=== PATIENT | male | born 1980 | race Caucasian/White ===

== ENCOUNTER 2019-03-09 09:15 | Emergency (ER) | payer SELFPAY ==
[2019-03-09] MEDS ORDERED: Albuterol/Ipratropium 3.0-0.5 MG/3 ML Neb Soln NEB ONE (09:33)
[2019-03-09] MEDS ORDERED: methylPREDNISolone Sodium Succinate 125 MG/2 ML SDV IM ONE (09:36)
--- NOTE | 2019-03-09 09:58 | EDM.PDOC ---
ED HPI GENERAL MEDICAL PROBLEM - General Chief Complaint: Respiratory Problem Stated Complaint: RESP INFECTION, SHORTNESS OF BREATH, COUGH Time Seen by Provider: 03/09/19 09:36 Source of Information: Reports: Patient History Limitations: Reports: No Limitations - History of Present Illness INITIAL COMMENTS - FREE TEXT/NARRATIVE: HISTORY AND PHYSICAL: History of present illness: Patient is a 38-year-old male presents to the ED with complaint of cough and not feeling well 6 days. She reports a history of asthma as a child, has been wheezy but denies shortness of breath or chest pain. He has had subjective fever but denies nausea, vomiting, abdominal pain, diarrhea. Patient reports smoking history 1 pack-a-day x15 years. Review of systems: As per history of present illness and below otherwise all systems reviewed and negative. Past medical history: As per history of present illness and as reviewed below otherwise noncontributory. Surgical history: As per history of present illness and as reviewed below otherwise noncontributory. Social history: No reported history of drug or alcohol abuse. Family history: As per history of present illness and as reviewed below otherwise noncontributory. Physical exam: General: Patient sitting comfortably in no acute distress and nontoxic appearing HEENT: Atraumatic, normocephalic, pupils reactive, negative for conjunctival pallor or scleral icterus, mucous membranes moist, throat clear, neck supple, nontender, trachea midline. No meningeal signs. Lungs: Breath sounds are diminished with wheezing noted throughout, chest nontender. Heart: S1S2, regular, negative for clicks, rubs, or overt murmur. Abdomen: Soft, nondistended, nontender. Negative for masses or hepatosplenomegaly. Negative for costovertebral tenderness. No rigidity, rebound , guarding. Pelvis: Stable nontender. Genitourinary: Deferred. Rectal: Deferred. Extremities: Atraumatic, negative for cords or calf pain. Neurovascular unremarkable. Neuro: Awake, alert, oriented. Cranial nerves II through XII unremarkable. Cerebellum unremarkable. Motor and sensory unremarkable throughout. Exam nonfocal. Notes: Diagnostics: CBC, CMP, chest x-ray Therapeutics: Solu-Medrol 125IM DuoNeb Prescriptions: Azithromycin Ventolin inhaler Medrol Dosepak Impression: Lower respiratory tract infection Plan: Take medication as instructed Follow-up with primary care provider Return to ED as needed as discussed Definitive disposition and diagnosis as appropriate pending reevaluation and review of above. generalized body aches Pain Score (Numeric/FACES): 5 - Related Data Allergies Allergy/AdvReac Type Severity Reaction Status Date / Time No Known Allergies Allergy Verified 07/23/15 23:06 Home Meds: Home Meds . [No Known Home Meds] 07/23/15 [History] Past Medical History - Past Health History Medical/Surgical History: Denies Medical/Surgical History Respiratory History: Reports: None Gastrointestinal History: Reports: None Genitourinary History: Reports: None Musculoskeletal History: Reports: None Neurological History: Reports: None Psychiatric History: Reports: Addiction Other Psychiatric History: PT does not want to be prescribed or given any narcotics due to addiction Hx. Endocrine/Metabolic History: Reports: None Dermatologic History: Reports: None - Infectious Disease History Infectious Disease History: Reports: None - Past Surgical History Cardiovascular Surgical History: Reports: None GI Surgical History: Reports: None Male Surgical History: Reports: None Social & Family History - Family History Family Medical History: Noncontributory - Tobacco Use Smoking Status *Q: Former Smoker Used Tobacco, but Quit: Yes Month/Year Tobacco Last Used: 02/2019 - Recreational Drug Use Recreational Drug Use: Yes ED ROS GENERAL - Review of Systems Review Of Systems: ROS reveals no pertinent complaints other than HPI. ED EXAM, GENERAL - Physical Exam Exam: See Below (See dictation) Course - Vital Signs Last Recorded V/S: Last Vital Signs Temp 96.6 F 03/09/19 09:20 Pulse 84 03/09/19 09:20 Resp 22 H 03/09/19 09:20 BP 135/81 03/09/19 09:20 Pulse Ox 96 03/09/19 09:20 - Orders/Labs/Meds Orders: Active Orders 24 hr Category Date Time Status RT Aerosol Therapy [RC] ASDIRECTED Care 03/09/19 09:33 Active Labs: Laboratory Tests 03/09/19 03/09/19 Range/Units 09:43 09:43 WBC 14.07 H (4.0-11.0) K/uL RBC 4.72 (4.50-5.90) M/uL Hgb 14.6 (13.0-17.0) g/dL Hct 41.5 (38.0-50.0) % MCV 87.9 (80.0-98.0) fL MCH 30.9 (27.0-32.0) pg MCHC 35.2 (31.0-37.0) g/dL RDW Std Deviation 40.6 (28.0-62.0) fl RDW Coeff of Mitchell 13 (11.0-15.0) % Plt Count 180 (150-400) K/uL MPV 8.90 (7.40-12.00) fL Neut % (Auto) 70.5 (48.0-80.0) % Lymph % (Auto) 17.6 (16.0-40.0) % Kemper % (Auto) 11.2 (0.0-15.0) % Eos % (Auto) 0.6 (0.0-7.0) % Baso % (Auto) 0.1 (0.0-1.5) % Neut # (Auto) 9.9 H (1.4-5.7) K/uL Lymph # (Auto) 2.5 H (0.6-2.4) K/uL Kemper # (Auto) 1.6 H (0.0-0.8) K/uL Eos # (Auto) 0.1 (0.0-0.7) K/uL Baso # (Auto) 0.0 (0.0-0.1) K/uL Nucleated RBC % 0.0 /100WBC Nucleated RBCs # 0 K/uL Sodium 140 (136-148) mmol/L Potassium 4.1 (3.5-5.1) mmol/L Chloride 104 (98-107) mmol/L Carbon Dioxide 24.9 (21.0-32.0) mmol/L BUN 17 (7.0-18.0) mg/dL Creatinine 1.1 (0.8-1.3) mg/dL Est Cr Clr Drug Dosing 110.96 mL/min Estimated GFR (MDRD) > 60.0 ml/min Glucose 103 (74-106) mg/dL Calcium 9.1 (8.5-10.1) mg/dL Total Bilirubin 0.5 (0.2-1.0) mg/dL AST 22 (15-37) IU/L ALT 28 (14-63) IU/L Alkaline Phosphatase 61 (46-116) U/L Total Protein 6.9 (6.4-8.2) g/dL Albumin 3.2 L (3.4-5.0) g/dL Globulin 3.7 (2.6-4.0) g/dL Albumin/Globulin Ratio 0.9 (0.9-1.6) Meds: Medications Discontinued Medications Generic Name Dose Route Start Last Admin Trade Name Tom PRN Reason Stop Dose Admin Albuterol/Ipratropium 3 ml 03/09/19 09:33 03/09/19 09:36 Duoneb 3.0-0.5 Mg/3 Ml NEB 03/09/19 09:34 3 ml ONETIME ONE Administration Methylprednisolone Sodium Succinate 125 mg 03/09/19 09:36 03/09/19 10:17 Solu-Medrol IM 03/09/19 09:37 125 mg ONETIME ONE Administration Departure - Departure Time of Disposition: 10:25 Disposition: Home, Self-Care 01 Condition: Good Clinical Impression: Lower respiratory infection - Discharge Information Referrals: PCP,Unknown [Primary Care Provider] - Forms: ED Department Discharge Additional Instructions: The following information is given to patients seen in the emergency department who are being discharged to home. This information is to outline your options for follow-up care. We provide all patients seen in our emergency department with a follow-up referral. The need for follow-up, as well as the timing and circumstances, are variable depending upon the specifics of your emergency department visit. If you don't have a primary care physician on staff, we will provide you with a referral. We always advise you to contact your personal physician following an emergency department visit to inform them of the circumstance of the visit and for follow-up with them and/or the need for any referrals to a consulting specialist. The emergency department will also refer you to a specialist when appropriate. This referral assures that you have the opportunity for follow-up care with a specialist. All of these measure are taken in an effort to provide you with optimal care, which includes your follow-up. Under all circumstances we always encourage you to contact your private physician who remains a resource for coordinating your care. When calling for follow-up care, please make the office aware that this follow-up is from your recent emergency room visit. If for any reason you are refused follow-up, please contact the [facility] Emergency Department at and asked to speak to the emergency department charge nurse. [facility] [address] [place] [address] [facility] [address] [place] [id number] Take medication as instructed Follow-up with primary care provider Return to ED as needed as discussed - My Orders Last 24 Hours: My Active Orders 03/09/19 09:33 RT Aerosol Therapy [RC] ASDIRECTED - Assessment/Plan Last 24 Hours: My Active Orders 03/09/19 09:33 RT Aerosol Therapy [RC] ASDIRECTED
[2019-03-09 10:10] LABS: BLOOD UREA NITROGEN,BUN 17 mg/dL (7.0-18.0); CARBON DIOXIDE,CO2 24.9 mmol/L (21.0-32.0); CHLORIDE,CL 104 mmol/L (98-107); GLUCOSE RANDOM 103 mg/dL (74-106); POTASSIUM,K 4.1 mmol/L (3.5-5.1); SODIUM,NA 140 mmol/L (136-148)
--- NOTE | 2019-03-09 10:15 | CR ---
INDICATION: Shortness of breath. COMPARISON: None. TECHNIQUE: Two view chest. FINDINGS: Subtle left basilar infiltrate. Clear right lung. Normal heart size. No pleural effusion identified. IMPRESSION: Faint opacity left lung base posteriorly. Comparison or radiographic follow up suggested. Dictated by Tod Milan MD @ Mar 09 2019 10:12AM Signed by Dr. Tod Milan @ Mar 09 2019 10:13AM
[2019-03-09 10:58] VITALS: BP 115/59
== END 2019-03-09 10:58 | disposition home or self-care (01) ==
LOC: MW.ED 09:15
DX: J22 Unspecified acute lower respiratory infection (principal); Z87.891 Personal history of nicotine dependence
CPT/HCPCS: 36415; 71046; 80053; 85025; 94640; 96372; 99284; J2930; J7620-GY

== ENCOUNTER 2019-09-01 00:31 | Emergency (ER) | payer SELFPAY ==
[2019-09-01] MEDS ORDERED: Ketorolac 30 MG/ML SDV IM ONE (00:45)
--- NOTE | 2019-09-01 00:51 | EDM.PDOC ---
ED [facility] GENERAL MEDICAL PROBLEM - General Chief Complaint: General Stated Complaint: SINUS INFECTION Time Seen by Provider: 09/01/19 00:50 Source of Information: Reports: Patient History Limitations: Reports: No Limitations - History of Present Illness INITIAL COMMENTS - FREE TEXT/NARRATIVE: Patient is a 38-year-old male presenting with chief complaint of ear discharge and cough. Patient states that his been sick for the past 1 week. Patient reports symptoms of intermittent fevers, cough, congestion. Patient states his ear discharge started yesterday. Patient reports some pain and discomfort in the ear. Patient denies any trauma. Patient denies any headaches. Patient has taken some ibuprofen with little relief. Patient denies any difficulty breathing or shortness of breath. Patient reports history of chronic bronchitis as a child. Pmhx: None Pshx: None Family Hx: noncontributory Smoking history? no Etoh use? none Drug use? Prior heroin use In addition to that documented in the HPI above, the additional ROS was obtained : Constitutional: Per HPI Eyes: Denies vision changes ENMT: Denies sore throat CV: Denies chest pain Resp: Denies SOB GI: Denies vomiting or diarrhea : Denies painful urination MSK: Denies recent trauma Skin: Denies new rashes Neuro: Denies new numbness or tingling or weakness Endocrine: Denies unexpected weight loss Heme: Denies bleeding disorders I have reviewed the triage vital signs Const: Well nourished, well developed, appears stated age Eyes: PERRL, no conjunctival injection HENT: Right ear demonstrates discharge with erythema of the external canal. No mastoid tenderness or erythema. NCAT, Neck supple without meningismus CV: RRR, Warm, well-perfused extremities RESP: Diffuse bilateral wheezes, Unlabored respiratory effort. Speaking full sentences without distress. GI: soft, non-tender, non-distended, no masses MSK: No gross deformities appreciated Skin: Warm, dry. No rashes Neuro: Alert, development associate II-XII grossly intact. Sensation and motor function of extremities grossly intact. Psych: Appropriate mood and affect Assessment and plan: Patient 38-year-old male presenting with ear discharge consistent with likely otitis externa. Patient has no signs or symptoms of mastoiditis. Patient will be discharged with otic suspension drops for 7 days. Patient's wheezing is likely due to concurrent bronchitis. Patient is not any respiratory distress and is saturating well on room air. Patient will be given supportive care instructions and return precautions. All questions addressed and answered. Patient agrees with plan. Head Pain Score (Numeric/FACES): 6 - Related Data Allergies Allergy/AdvReac Type Severity Reaction Status Date / Time No Known Allergies Allergy Verified 09/01/19 00:35 Home Meds: Home Meds Benzonatate [Tessalon Perle] 100 mg PO TID #30 capsule 09/01/19 [Rx] Past Medical History - Past Health History Medical/Surgical History: Denies Medical/Surgical History Respiratory History: Reports: None Gastrointestinal History: Reports: None Genitourinary History: Reports: None Musculoskeletal History: Reports: None Neurological History: Reports: None Psychiatric History: Reports: Addiction Other Psychiatric History: PT does not want to be prescribed or given any narcotics due to addiction Hx. Endocrine/Metabolic History: Reports: None Dermatologic History: Reports: None - Infectious Disease History Infectious Disease History: Reports: Chicken Pox, MRSA - Past Surgical History Cardiovascular Surgical History: Reports: None GI Surgical History: Reports: None Male Surgical History: Reports: None Social & Family History - Family History Family Medical History: Noncontributory - Tobacco Use Smoking Status *Q: Current Every Day Smoker Years of Tobacco use: 22 Packs/Tins Daily: 1 - Caffeine Use Caffeine Use: Reports: Coffee, Energy Drinks - Recreational Drug Use Recreational Drug Use: No ED ROS GENERAL - Review of Systems Review Of Systems: See Below ED EXAM, GENERAL - Physical Exam Exam: See Below Course - Vital Signs Last Recorded V/S: Last Vital Signs Temp 36.7 C 09/01/19 00:36 Pulse 72 09/01/19 00:36 Resp 20 09/01/19 00:36 BP 132/82 09/01/19 00:36 Pulse Ox 95 09/01/19 00:36 - Orders/Labs/Meds Meds: Medications Discontinued Medications Generic Name Dose Route Start Last Admin Trade Name Freq PRN Reason Stop Dose Admin Ketorolac Tromethamine 30 mg 09/01/19 00:45 Toradol IM 09/01/19 00:46 ONETIME ONE Departure - Departure Time of Disposition: 00:50 Disposition: Home, Self-Care 01 Clinical Impression: Otitis externa - Discharge Information Prescriptions: Benzonatate [Tessalon Perle] 100 mg PO TID #30 capsule Instructions: Otitis Externa, [id number] Referrals: PCP,None [Primary Care Provider] - Forms: ED Department Discharge Additional Instructions: The following information is given to patients seen in the emergency department who are being discharged to home. This information is to outline your options for follow-up care. We provide all patients seen in our emergency department with a follow-up referral. The need for follow-up, as well as the timing and circumstances, are variable depending upon the specifics of your emergency department visit. If you don't have a primary care physician on staff, we will provide you with a referral. We always advise you to contact your personal physician following an emergency department visit to inform them of the circumstance of the visit and for follow-up with them and/or the need for any referrals to a consulting specialist. The emergency department will also refer you to a specialist when appropriate. This referral assures that you have the opportunity for follow-up care with a specialist. All of these measure are taken in an effort to provide you with optimal care, which includes your follow-up. Under all circumstances we always encourage you to contact your private physician who remains a resource for coordinating your care. When calling for follow-up care, please make the office aware that this follow-up is from your recent emergency room visit. If for any reason you are refused follow-up, please contact the [facility] Emergency Department at and asked to speak to the emergency department charge nurse. Sepsis Event Note - Evaluation Sepsis Screening Result: No Definite Risk - Focused Exam Vital Signs: Vital Signs Temp Pulse Resp BP Pulse Ox 09/01/19 00:36 36.7 C 72 20 132/82 95 Date Exam was Performed: 09/01/19 Time Exam was Performed: 00:52
[2019-09-01 01:00] VITALS: BP 120/77; PULSE 74
[2019-09-01] MEDS ORDERED: Hydrocortisone/Neomycin/Polymyxin B Otic Susp 10 ML Bottle EARBOTH ONE (01:02)
== END 2019-09-01 01:12 | disposition home or self-care (01) ==
LOC: MW.ED 00:31
DX: H60.91 Unspecified otitis externa, right ear (principal); F17.210 Nicotine dependence, cigarettes, uncomplicated
CPT/HCPCS: 96372; 99283; A9270; J1885

== ENCOUNTER 2021-06-07 01:25 | Emergency (ER) | payer SELFPAY ==
--- NOTE | 2021-06-07 01:26 | EDM.PDOC ---
ED HPI GENERAL MEDICAL PROBLEM - General Stated Complaint: ALTERED STATE AFTER EATING EDIBLE Time Seen by Provider: 06/07/21 01:30 - History of Present Illness INITIAL COMMENTS - FREE TEXT/NARRATIVE: History of present illness: [] Patient has sudden jerky tremor. He has anxiety. He feels tightness in the throat. The patient occasionally smokes marijuana. He has not used methamphetamine or narcotics for several years. He did eat an edible which is friend said was strong. Since then he has anxiety and sudden jerking myoclonus. Review of systems: As per history of present illness and below otherwise all systems reviewed and negative. Past medical history: As per history of present illness and as reviewed below otherwise noncontributory. Surgical history: As per history of present illness and as reviewed below otherwise noncontributory. Social history: No reported history of drug or alcohol abuse. Family history: As per history of present illness and as reviewed below otherwise noncontributory. Physical exam: Constitutional - well developed, well-nourished and in no acute distress HEENT - normocephalic, no evidence of trauma - external nose and mouth normal - no mass in neck and no JVD - mucosae moist EYES - full EOM, PERRL, no icterus - no evidence of inflammation, injection, or drainage Respiratory - no respiratory distress, equal bilateral expansion, lungs clear to auscultation and no abnormal lung sounds Cardiovascular - Regular Rhythm with S1 and S2 appreciated and no murmur, gallop or rub. GI - abdomen soft without distension or organomegaly - normal bowel sounds - no guard or rebound Musculoskeletal no gross deformity of long bones or joints - no tenderness, swelling or edema Neurologic -intermittent myoclonic jerks. Alert and oriented times four - CN II-XII grossly intact - motor sensory and coordination symmetrically normal Psychiatric -anxious mood and normal affect with normal thought content Hematologic - No petechiae or purpura - mucosa appropriate color and sclera not pale - normal nail bed color and refill Integument - no rash or evidence of trauma - normal turgor Diagnostics: [] Therapeutics: [] Impression: [] Plan: [] Definitive disposition and diagnosis as appropriate pending reevaluation and review of above. general Pain Score (Numeric/FACES): 0 - Related Data Allergies Allergy/AdvReac Type Severity Reaction Status Date / Time No Known Allergies Allergy Verified 06/07/21 01:35 Past Medical History - Past Health History Medical/Surgical History: Denies Medical/Surgical History Respiratory History: Reports: None Gastrointestinal History: Reports: None Genitourinary History: Reports: None Musculoskeletal History: Reports: None Neurological History: Reports: None Psychiatric History: Reports: Addiction Other Psychiatric History: PT does not want to be prescribed or given any narcotics due to addiction Hx. Endocrine/Metabolic History: Reports: None Dermatologic History: Reports: None - Infectious Disease History Infectious Disease History: Reports: Chicken Pox, MRSA - Past Surgical History Cardiovascular Surgical History: Reports: None GI Surgical History: Reports: None Male Surgical History: Reports: None Social & Family History - Family History Family Medical History: No Pertinent Family History - Caffeine Use Caffeine Use: Reports: Coffee, Energy Drinks ED ROS GENERAL - Review of Systems Review Of Systems: Comprehensive ROS is negative, except as noted in HPI. ED EXAM, GENERAL - Physical Exam Exam: See Below Free Text/Narrative:: My physical exam is in the HPI Course - Vital Signs Last Recorded V/S: Last Vital Signs Temp 36.3 C 06/07/21 01:36 Pulse 105 H 06/07/21 02:31 Resp 20 06/07/21 02:31 BP 126/83 06/07/21 02:31 Pulse Ox 95 06/07/21 02:31 - Orders/Labs/Meds Orders: Active Orders 24 hr Category Date Time Status DRUG SCREEN, URINE [URCHEM] Stat Lab 06/07/21 01:28 Ordered Sodium Chloride 0.9% [Saline Flush] Med 06/07/21 02:27 Active 10 ml FLUSH ASDIRECTED PRN Sodium Chloride 0.9% [Saline Flush] Med 06/07/21 02:27 Active 2.5 ml FLUSH ASDIRECTED PRN Saline Lock Insert [OM.PC] Stat Oth 06/07/21 02:28 Ordered Medication Orders Sodium Chloride (Sodium Chloride 0.9% 10 Ml Syringe) 10 ml FLUSH ASDIRECTED PRN PRN Reason: Keep Vein Open Last Admin: 06/07/21 02:38 Dose: 10 ml Documented by: STEPHON Sodium Chloride (Sodium Chloride 0.9% 2.5 Ml Syringe) 2.5 ml FLUSH ASDIRECTED PRN PRN Reason: Keep Vein Open Last Admin: 06/07/21 02:37 Dose: 2.5 ml Documented by: STEPHON Labs: Laboratory Tests 06/07/21 06/07/21 Range/Units 02:35 02:35 WBC 8.76 (4.0-11.0) K/uL RBC 4.87 (4.50-5.90) M/uL Hgb 15.0 (13.0-17.0) g/dL Hct 42.2 (38.0-50.0) % MCV 86.7 (80.0-98.0) fL MCH 30.8 (27.0-32.0) pg MCHC 35.5 (31.0-37.0) g/dL RDW Std Deviation 39.3 (28.0-62.0) fl RDW Coeff of Mitchell 12 (11.0-15.0) % Plt Count 210 (150-400) K/uL MPV 9.40 (7.40-12.00) fL Neut % (Auto) 79.0 (48.0-80.0) % Lymph % (Auto) 13.4 L (16.0-40.0) % Evangeline % (Auto) 7.2 (0.0-15.0) % Eos % (Auto) 0.3 (0.0-7.0) % Baso % (Auto) 0.1 (0.0-1.5) % Neut # (Auto) 6.9 H (1.4-5.7) K/uL Lymph # (Auto) 1.2 (0.6-2.4) K/uL Evangeline # (Auto) 0.6 (0.0-0.8) K/uL Eos # (Auto) 0.0 (0.0-0.7) K/uL Baso # (Auto) 0.0 (0.0-0.1) K/uL Nucleated RBC % 0.0 /100WBC Nucleated RBCs # 0 K/uL Sodium 138 (136-148) mmol/L Potassium 4.1 (3.5-5.1) mmol/L Chloride 104 (98-107) mmol/L Carbon Dioxide 24.4 (21.0-32.0) mmol/L BUN 19 H (7.0-18.0) mg/dL Creatinine 1.4 H (0.8-1.3) mg/dL Est Cr Clr Drug Dosing 85.51 mL/min Estimated GFR (MDRD) 56.7 ml/min Glucose 138 H (74-106) mg/dL Calcium 8.7 (8.5-10.1) mg/dL Total Bilirubin 0.4 (0.2-1.0) mg/dL AST 21 (15-37) IU/L ALT 27 (14-63) IU/L Alkaline Phosphatase 74 (46-116) U/L Creatine Kinase 241 (26-308) U/L Total Protein 7.4 (6.4-8.2) g/dL Albumin 3.8 (3.4-5.0) g/dL Globulin 3.6 (2.6-4.0) g/dL Albumin/Globulin Ratio 1.1 (0.9-1.6) Meds: Medications Generic Name Dose Route Start Last Admin Trade Name Tom PRN Reason Stop Dose Admin Sodium Chloride 10 ml 06/07/21 02:27 06/07/21 02:38 Sodium Chloride 0.9% 10 Ml Syringe FLUSH 10 ml ASDIRECTED PRN Administration Keep Vein Open Sodium Chloride 2.5 ml 06/07/21 02:27 06/07/21 02:37 Sodium Chloride 0.9% 2.5 Ml Syringe FLUSH 2.5 ml ASDIRECTED PRN Administration Keep Vein Open Discontinued Medications Generic Name Dose Route Start Last Admin Trade Name Frerocco PRN Reason Stop Dose Admin Clonazepam 1 mg 06/07/21 01:34 06/07/21 01:56 Clonazepam 1 Mg Tab PO 06/07/21 01:35 1 mg STAT STA Administration Sodium Chloride 1,000 mls @ 999 mls/hr 06/07/21 02:27 06/07/21 02:34 Normal Saline IV 06/07/21 03:27 999 mls/hr .Bolus ONE Administration Lorazepam 1 mg 06/07/21 02:27 06/07/21 02:34 Lorazepam 2 Mg/Ml Sdv IVPUSH 06/07/21 02:28 1 mg ONETIME ONE Administration - Re-Assessments/Exams Free Text/Narrative Re-Assessment/Exam: 06/07/21 02:52 Patient was moving with chorea-like unpredictable movements - even though he has a history of addiction, in view of the unknown true nature of the cannibinoid- like substance he has ingested, I elected to medicate with benzodiazepines to prevent possible muscle damage and rhabdomyolysis from the uncontrolled movements and to relieve his anxiety. 06/07/21 03:40 vital signs and laboratory do not demonstrate any significant end organ toxicity from what ever his cannabis was laced with or what ever type of artificial cannabis he ingested. Patient rested calmly after fluids and Ativan. Plan to discharge and let him sleep to return if he has worsening or recurrent symptoms 06/07/21 03:41 Departure - Departure Time of Disposition: 03:39 Disposition: Home, Self-Care 01 Condition: Good Clinical Impression: Myoclonus, Adverse reaction to cannabis - Discharge Information Instructions: Myoclonus Referrals: PCP,None [Primary Care Provider] - Additional Instructions: [facility] - Primary Care [address] [place] [id number] [address] [address] The following information is given to patients seen in the emergency department who are being discharged to home. This information is to outline your options for follow-up care. We provide all patients seen in our emergency department with a follow-up referral. The need for follow-up, as well as the timing and circumstances, are variable depending upon the specifics of your emergency department visit. If you don't have a primary care physician on staff, we will provide you with a referral. We always advise you to contact your personal physician following an emergency department visit to inform them of the circumstance of the visit and for follow-up with them and/or the need for any referrals to a consulting specialist. The emergency department will also refer you to a specialist when appropriate. This referral assures that you have the opportunity for follow-up care with a specialist. All of these measure are taken in an effort to provide you with optimal care, which includes your follow-up. Under all circumstances we always encourage you to contact your private physician who remains a resource for coordinating your care. When calling for follow-up care, please make the office aware that this follow-up is from your recent emergency room visit. If for any reason you are refused follow-up, please contact the [facility] Emergency Department at and asked to speak to the emergency department charge nurse. Sepsis Event Note (ED) - Focused Exam Vital Signs: Vital Signs Temp Pulse Resp BP Pulse Ox 06/07/21 02:31 105 H 20 126/83 95 06/07/21 01:36 36.3 C 123 H 20 133/83 96 - My Orders Last 24 Hours: My Active Orders 06/07/21 01:28 DRUG SCREEN, URINE [URCHEM] Stat 06/07/21 02:27 Sodium Chloride 0.9% [Saline Flush] 10 ml FLUSH ASDIRECTED PRN Sodium Chloride 0.9% [Saline Flush] 2.5 ml FLUSH ASDIRECTED PRN 06/07/21 02:28 Saline Lock Insert [OM.PC] Stat - Assessment/Plan Last 24 Hours: My Active Orders 06/07/21 01:28 DRUG SCREEN, URINE [URCHEM] Stat 06/07/21 02:27 Sodium Chloride 0.9% [Saline Flush] 10 ml FLUSH ASDIRECTED PRN Sodium Chloride 0.9% [Saline Flush] 2.5 ml FLUSH ASDIRECTED PRN 06/07/21 02:28 Saline Lock Insert [OM.PC] Stat
[2021-06-07] MEDS ORDERED: ClonazePAM 1 MG Tab PO STA (01:34)
[2021-06-07] MEDS ORDERED: Sodium Chloride 0.9% 10 ML Syringe FLUSH PRN (02:27)
[2021-06-07] MEDS ORDERED: Sodium Chloride 0.9% 1,000 ML IV ONE (02:27)
[2021-06-07] MEDS ORDERED: Sodium Chloride 0.9% 2.5 ML Syringe FLUSH PRN (02:27)
[2021-06-07] MEDS ORDERED: LORazepam 2 MG/ML SDV IVPUSH ONE (02:27)
[2021-06-07 03:07] LABS: CARBON DIOXIDE,CO2 24.4 mmol/L (21.0-32.0); POTASSIUM,K 4.1 mmol/L (3.5-5.1)
[2021-06-07 03:40] VITALS: BP 114/58; PULSE 75
== END 2021-06-07 03:50 | disposition home or self-care (01) ==
LOC: MW.ED 01:25
DX: G25.3 Myoclonus (principal); T40.715A Adverse effect of cannabis, initial encounter
CPT/HCPCS: 36415; 80053; 82550; 85025; 96374; 99283; A9270; J2060; J7030

== ENCOUNTER 2022-06-16 22:52 | Emergency (ER) | payer BC ==
[2022-06-17 03:53] LABS: CARBON DIOXIDE,CO2 28.5 mmol/L (21.0-32.0); POTASSIUM,K 3.7 mmol/L (3.5-5.1)
[2022-06-17 04:52] VITALS: BP 142/68; PULSE 61
== END 2022-06-17 04:50 | disposition home or self-care (01) ==
LOC: MW.ED 22:52
DX: R20.2 Paresthesia of skin (principal); M79.641 Pain in right hand; M79.642 Pain in left hand
CPT/HCPCS: 36415; 70450; 70450-26; 72125; 72125-26; 72128; 72128-26; 72131; 72131-26; 80053; 83735; 85025; 85652; 86140; 99284

== ENCOUNTER 2022-08-02 22:43 | Observation (INO) | payer BC ==
[2022-08-03 00:30] LABS: BLOOD UREA NITROGEN,BUN 21 mg/dL (7.0-18.0); CARBON DIOXIDE,CO2 25.7 mmol/L (21.0-32.0); CHLORIDE,CL 105 mmol/L (98-107); GLUCOSE RANDOM 109 mg/dL (74-106); SODIUM,NA 139 mmol/L (136-148)
[2022-08-03 00:34] LABS: ESTIMATED GFR 79 mL/min (>60)
[2022-08-03] MEDS ORDERED: Iopamidol 755 MG/ML 500 ML Multipack Bottle IVPUSH STA (04:22)
[2022-08-03] MEDS ORDERED: Sodium Chloride 0.9% 2.5 ML Syringe FLUSH PRN (11:18)
[2022-08-03] MEDS ORDERED: Polyethylene Glycol 3350 Powder 17 GM Packet PO PRN (11:18)
[2022-08-03] MEDS ORDERED: Acetaminophen 325 MG Tab PO PRN (11:18)
[2022-08-03] MEDS ORDERED: Sodium Chloride 0.9% 10 ML Syringe FLUSH PRN (11:18)
[2022-08-03] MEDS ORDERED: Ondansetron 4 MG/2 ML SDV IVPUSH PRN (11:18)
[2022-08-03] MEDS ORDERED: Docusate Sodium 100 MG Cap PO PRN (11:18)
[2022-08-04 07:50] LABS: CARBON DIOXIDE,CO2 27.6 mmol/L (21.0-32.0)
[2022-08-04 14:30] VITALS: BP 112/72; PULSE 72
== END 2022-08-04 15:30 | disposition home or self-care (01) ==
LOC: MW.ED 22:43 → MW.MS 08-03 06:01
PROVIDERS: ADMIT Internal Medicine; ATTEND Internal Medicine
DX: R07.9 Chest pain, unspecified (principal); I46.9 Cardiac arrest, cause unspecified; R41.89 Other symptoms and signs involving cognitive functions and awareness; T40.715A Adverse effect of cannabis, initial encounter; Z98.890 Other specified postprocedural states; Z20.822 Contact with and (suspected) exposure to COVID-19
CPT/HCPCS: 36415; 71045; 71045-26; 71275; 71275-26; 80048; 80053; 80305-QW; 80307; 83605; 83735; 84443; 84484; 85025; 85610; 93005; 93010; 93306; 99222; 99238; 99285; 99291; A9270-GY; G0378; Q9967; U0002